=== PATIENT | female | born 1925 | race Caucasian/White ===

== ENCOUNTER → 2016-08-23 | Outpatient (CLI) | payer MEDICARE, BC ==
[~2016-08-23] MED LIST: ASPI-781 PO; CEPH-443 PO; THY15 PO
--- NOTE | 2016-08-24 20:23 | HKNOTE ---
DATE OF SERVICE: 08/23/2016 MAIN COMPLAINT: The patient comes in for checkup on her left knee. DICTATION ENDS HERE Dictated By: REY GRAF/CARLOS Conf#: [id number] DID#: [id number]
== END | disposition home or self-care (01) ==
LOC: HKI 14:50
DX: Z47.1 Aftercare following joint replacement surgery (principal); Z96.651 Presence of right artificial knee joint
CPT/HCPCS: G0463

== ENCOUNTER → 2016-10-13 | Outpatient (CLI) | payer MEDICARE, BC ==
--- NOTE | 2016-10-13 11:19 | RADRPT ---
PROCEDURE: XR right knee. CLINICAL INDICATION: Knee pain. TECHNIQUE: AP weightbearing, lateral weightbearing and sunrise views are available for review. 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 There is no evidence of loosening of the prosthesis. There is no evidence of hardware failure. There is diffuse osteopenia. No acute fracture or dislocat ion is seen.No osseous lesions are identified. The soft tissues are unremarkable . there are arteri al vascular calcifications. There is a small suprapatellar joint effusion IMPRESSION: Unremarkable constrained total knee replacement. Diffuse osteopenia Small suprapatellar joint effusion RPTAT: HGDB .Dion Orourke MD, MD Date Time Electronically viewed and signed by .Dion Orourke MD, on 10/13/2016 11:18 .B/
--- NOTE | 2016-10-13 19:18 | HKNOTE ---
DATE OF SERVICE: 10/13/2016 MAIN COMPLAINT: Pain in the right knee. HISTORY OF MAIN COMPLAINT: The patient is an 89-year-old female who underwent a right total knee re placement on 07/16/2015 (more than a year ago), the knee was "perfect," who underwent revision of a tibial component more than a year ago for loosening. The knee was "perfect" after that until she to ok a fall on 08/18/2016. (As a result of a TIA). She did not have a stroke. She landed directly o n the right knee. Since then, she has had pain over a specific point of the knee. Sometimes she go es for 4 or 5 days without the pain. The pain occurs randomly. Pain is not aggravated by walking, weightbearing or stair climbing, but it seems to be aggravated by local pressure. PHYSICAL EXAMINATION: GENERAL: A remarkably youthful 89-year-old female. VITAL SIGNS: Blood pressure 125/60, temperature 98.0. Examination of the right knee, a full range of motion without pain. No external sign of infection o r inflammation. Patient is able to localize a point of tenderness near the medial side of the wound. This area was palpated and I believe I can feel a cutaneous nerve under the skin which seems to cause her pain and pressure. IMAGING: Plain x-rays of the right knee show all components to be well attached to the bone, not th e slightest suggestion of loosening or any other problem. DIAGNOSES: 1. Status post right total knee replacement. 2. 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 3. A tender subcutaneous neuroma. MANAGEMENT: Under sterile conditions, the neuroma area was injected with 2 mL of lidocaine. This i mmediately took all the pain away from her knee. There is no longer any tender area. A 0.5 mL of K enalog was then injected into the area. She was advised that this may "cure" the condition, or if does not, we may have to do a local explor ation and excise the neuroma. Dictated By: REY GRAF/CARLOS Conf#: [id number] DID#: [id number]
== END | disposition home or self-care (01) ==
LOC: HKI 10:36
DX: D36.13 Benign neoplasm of peripheral nerves and autonomic nervous system of lower limb, including hip (principal); M25.561 Pain in right knee; Z96.651 Presence of right artificial knee joint; Z91.81 History of falling
CPT/HCPCS: 20610; 73562; G0463

== ENCOUNTER → 2016-11-03 | Outpatient (CLI) | payer MEDICARE, BC ==
--- NOTE | 2016-11-04 02:49 | HKNOTE ---
DATE OF SERVICE: 11/03/2016 HISTORY OF PRESENT ILLNESS: The patient continues to complain of pain in her right knee. Pain is o angy the lateral aspect of the knee and has now changed its character in that it radiates from the kn ee to her ankle. The cortisone injection I put into the area where I thought there might be a neuro ma at the last visit did not help at all. The patient's pain also radiates up the lateral aspect of the right thigh to the buttock. She does not have any back pain nor she have any history of back p roblems. Note that she had a revision for a loose tibial component of right total knee replacement performed by me on 07/16/2015. Her knee was fine without pain until she took a fall in August. She only developed this pain after the fall. PHYSICAL EXAMINATION: The right knee has a full range of motion without pain, external sign of infe ction, or inflammation. No tender points could be localized anywhere around her knee today. NEUROLOGIC: Motor examination reveals no muscle deficit in the lower extremities. Deep tendon refl exes in the lower extremities: Right knee jerk plus, left knee jerk plus, right ankle jerk plus, le ft ankle jerk plus. Straight leg raising is negative bilaterally at 80 degrees. Lasegue and IDALMIS tests are negative. MANAGEMENT: The patient is advised that this pain has nothing whatsoever to do with her knee. She almost certainly has radiation of pain from her lower back. She is being referred to Dr. Jose Daniel wilder for a spine consultation and evaluation and probably an MRI scan of the lumbar spine. She will be seen by me again only for conditions related to the right knee. Dictated By: REY GRAF/CARLOS Conf#: [id number] DID#: [id number]
== END | disposition home or self-care (01) ==
LOC: HKI 15:02
DX: M25.561 Pain in right knee (principal); Z96.651 Presence of right artificial knee joint; Z91.81 History of falling
CPT/HCPCS: G0463

== ENCOUNTER 2016-11-19 10:22 | Emergency (ER) | payer MEDICARE, BC ==
[~2016-11-19] VITALS: Ht 160 cm; Wt 64.0 kg
[2016-11-19 10:33] VITALS: Ht 160 cm; Wt 64.0 kg
[2016-11-19 10:53] VITALS: BP 142/78; PULSE 115; RESP 20
--- NOTE | 2016-11-19 11:42 | RADRPT ---
PROCEDURE: CT Brain without contrast. CLINICAL INDICATION: Head and face injury status post fall. TECHNIQUE: A CT of the brain was performed on a multidetector CT scanner utilizing axial sections from the skull base through the vertex without contrast. Images were reviewed on a high-resolution [employer] workstation. Exam CTDI = 45.01 mGy and the DLP = 720.23 mGy-cm. One or more of the following dose reduction techniques were used: Automated exposure control Adjustment of the mA and/or kV according to patient size. Use of iterative reconstruction technique. COMPARISON: Head CT 11/08/2015 FINDINGS: Mild diffuse cerebral and cerebellar atrophy is present. There is proportionate dilatation of the v entricular system and sulci in a symmetric fashion. There is prominence of the extraaxial spaces sec ondary to atrophy. There is no evidence of intracranial hemorrhage, mass effect or midline shift. N o abnormal intra-axial or extra-axial fluid collections are seen. The density of the brain is jyoti l and the rubin/white matter differentiation is well preserved. Mild to moderate patchy diffuse deep white matter microangiopathic ischemic change is seen. The osseous structures are unremarkable. Paranasal sinuses are clear. Vascular calcifications are identified. IMPRESSION: 1. No intracranial hemorrhage, mass effect or midline shift. 2. Mild generalized atrophy. Mild to moderate microangiopathic ischemic change. 3. Intracranial atherosclerosis. RPTAT: EE .Ines Cabrera MD, MD Date Time Electronically viewed and signed by .Ines Cabrera MD, on 11/19/2016 11:42 .O/
--- NOTE | 2016-11-19 11:46 | RADRPT ---
PROCEDURE: CT maxillofacial bones. CLINICAL INDICATION: Pain status post facial trauma TECHNIQUE: Multiphase CT scan of the face was performed in the axial plane. Coronal and sagittal re-formations were performed. The CTDI measures 29.39 mGy. The calculated radiation dose measures 5 11.46 mGy cm. One or more of the following dose reduction techniques were used: Automated exposure control. Adjustment of the mA and/or kV according to patient size. Use of iterative reconstruction technique. COMPARISON: None FINDINGS: There is a nondisplaced nasal bone fracture . The mandible is identified demonstrating no evidence o f fracture or bony dysplasia. There is no evidence of adjacent soft tissue swelling. The mid face a nd bony orbits demonstrate no evidence of acute fracture. Evaluation of the orbits demonstrates the globes to be normal in their size, shape, and attenuation bilaterally. No definite intra or extrac onal soft tissue masses are seen. The optic nerve and nerve sheath complexes bilaterally appear unr emarkable. There is rightward nasal septal deviation with a prominent osseous spur. The paranasal sinuses are clear. There is thinning of bilateral lenses suggesting prior contracts surgery. IMPRESSION: 1. Nondisplaced nasal bone fracture. RPTAT: EE .Ines Cabrera MD, MD Date Time Electronically viewed and signed by .Ines Cabrera MD, MD on 11/19/2016 11:46 .O/
[2016-11-19] MEDS ORDERED: IBUP400T22 PO (11:52)
--- NOTE | 2016-11-19 15:04 | ERD ---
ER Documentation Chief Complaint Date/Time DATE: 11/19/16 TIME: 14:58 Chief Complaint HAD A MECHANICAL FALL AND INJURED FACE AND NOSE HPI 89-year-old woman with bruising to the nasal bridge and bilateral orbits after mechanical trip and fall last night while in the kitchen. She woke up today and after seeing her face came here for evaluation. She denies paresis or paresthesias, no blurry vision, no chest pain or shortness of breath, no headache or complaints of paresis. Patient denies anticoagulant use. ROS All systems reviewed and are negative except as per history of present illness. Medications Home Meds Active Scripts Ibuprofen* (Motrin*) 400 Mg Tab, 400 MG PO Q8 for PAIN AND/OR INFLAMMATION, #30 TAB Prov:ADRI ALLEN MD 11/19/16 Cephalexin* (Keflex*) 500 Mg Capsule, 500 MG PO QID for 5 Days, CAP Prov:ADRI ALLEN MD 11/08/15 Aspirin* (Ecotrin*) 325 Mg Tabec, 325 MG PO BID for 45 Days Prov:KIERSTEN CARCAMO 07/17/15 Reported Medications Thyroid ([place] Thyroid) 15 Mg Tablet, 25 MCG PO DAILY, TAB ON TU,TH. 05/08/14 Thyroid ([place] Thyroid) 15 Mg Tablet, 50 MCG PO DAILY, TAB TAKES 50 MCG ON MON,WED,FRI,SAT 05/08/14 Allergies Allergies: Coded Allergies: lactose (Verified Allergy, Intermediate, 11/08/15) Penicillins (Verified Allergy, Unknown, 11/08/15) calcitonin (Verified Allergy, Unknown, 11/08/15) ciprofloxacin (Verified Allergy, Unknown, 11/08/15) erythromycin base (Verified Allergy, Unknown, 07/16/15) PMhx/Soc Hypertension, thyroid problems, coronary artery disease History of Surgery: Yes (R TKR 2013, back sx, thyroid sx) Anesthesia Reaction: No Hx Neurological Disorder: Yes (TIA on 10/17) Hx Respiratory Disorders: No Hx Cardiac Disorders: No Hx Psychiatric Problems: No Hx Miscellaneous Medical Probl: Yes (thyroid) Hx Alcohol Use: No Hx Substance Use: No Hx Tobacco Use: No Smoking Status: Never smoker FmHx Family History: No diabetes Physical Exam Vitals Vital Signs Date Time Temp Pulse Resp B/P Pulse Ox O2 Delivery O2 Flow Rate FiO2 11/19/16 10:53 115 20 142/78 95 Room Air 11/19/16 10:33 98.0 115 18 155/67 93 Physical Exam GENERAL: Well-developed, well-nourished, well-hydrated, in no apparent distress , looks nontoxic in appearance HEENT: Moist mucous membranes, soft tissue contusion ecchymosis to the bridge of the nose and bilateral inferior orbits, no skin laceration or breakdown, no active bleeding. Cervical spine is without tenderness or step-off deformity NEURO: Alert and oriented 3, cranial nerves II through XII intact bilaterally, pupils equal round reactive to light, no focal deficits or facial asymmetry, sensation intact distally Strength 5/5 in upper and lower extremities bilaterally CARDIAC: Regular rate and rhythm, no murmurs rubs or gallops LUNGS: Clear bilaterally no wheezing crackles or stridor ABDOMEN: Soft nontender, no guarding, no rigidity, no rebound, no psoas sign no obturator sign. Normoactive bowel sounds SKIN: Warm and dry to touch, no abrasions, contusions, or hematomas, no lacerations, no ecchymosis, no target lesions, and without ulcers EXTREMITIES: No clubbing cyanosis or edema, calves are bilaterally symmetrical, no Homans sign, no popliteal cord sign. Distal pulses equal and bilateral PSYCH: Normal affect without agitation or irritability Procedures/MDM CT scan of the brain was negative for acute bleed mass or shift. Maxillofacial CT scan revealed nondisplaced nasal fracture, no other fracture or dislocations noted. Please refer to radiologist dictation for full report. Patient feels much better at this time, and vital signs are normal, symptoms have improved. I did give strict instructions to return to the ED if symptoms continue or worsen, patient will otherwise follow-up with primary care physician. Patient understood instructions and agreed to plan. Disclaimer: Inadvertent spelling or grammatical errors are likely due to EHR/ dictation software use and do not reflect on the overall quality of patient care. Departure Diagnosis: Primary Impression: Nasal fracture Encounter type: initial encounter Fracture type: closed Qualified Code: S02.2XXA - Closed fracture of nasal bone, initial encounter Additional Impression: Facial contusion Encounter type: initial encounter Qualified Code: S00.83XA - Facial contusion, initial encounter Condition: Good Patient Instructions: Facial Contusion, No Wakeup ADRI ALLEN MD Nov 19, 2016 15:04
== END 2016-11-19 12:08 | disposition home or self-care (01) ==
LOC: E/R 10:22
DX: S02.2XXA Fracture of nasal bones, initial encounter for closed fracture (principal); I10 Essential (primary) hypertension; I25.10 Atherosclerotic heart disease of native coronary artery without angina pectoris; R40.2142 Coma scale, eyes open, spontaneous, at arrival to emergency department; R40.2252 Coma scale, best verbal response, oriented, at arrival to emergency department; R40.2362 Coma scale, best motor response, obeys commands, at arrival to emergency department; W01.0XXA Fall on same level from slipping, tripping and stumbling without subsequent striking against object, initial encounter; Y92.000 Kitchen of unspecified non-institutional (private) residence as the place of occurrence of the external cause; Z79.82 Long term (current) use of aspirin
CPT/HCPCS: 70450; 70486

== ENCOUNTER → 2017-02-02 | Outpatient (CLI) | payer MEDICARE, BC ==
[~2017-02-02] MED LIST changes: +IBUP400T22 PO
--- NOTE | 2017-02-02 15:44 | RADRPT ---
PROCEDURE: Right knee x-ray CLINICAL INDICATION: PAIN TECHNIQUE: AP, lateral, and sunrise views of the knee were obtained. COMPARISON: Plain radiographs of the right knee from 10/13/2016 FINDINGS: No acute fracture or dislocation is seen. There is decreased osseous mineralization. A total right knee prosthesis in near anatomic alignment is again noted without evidence of hardware loosening. There is no joint effusion. There is no significant soft tissue swelling. IMPRESSION: Redemonstration of a total right knee prosthesis in near anatomic alignment. Decreased osseous mineralization. RPTAT: EE Physician Akil Date Time Electronically viewed and signed by Physician Akil on 02/02/2017 15:43 RA/
--- NOTE | 2017-02-02 22:38 | HKNOTE ---
DATE OF SERVICE: 02/02/2017 When this patient was last seen she was complaining of a point of tenderness in her knee. I thought I could feel a neuroma under the skin. I injected the area around the neuroma with local anesthetic and cortisone. She now complains that she still has pain in that area and that the skin has become discolored in that area. PHYSICAL EXAMINATION: On physical examination, she has atrophy of the subcutaneous tissues surrounding the area where the neuroma was found. There is still marked tenderness over the neuroma which I can quite easily feel. MANAGEMENT: Patient would like us to remove the neuroma. This will be done under local anesthetic at [facility]. The procedure was discussed with her. The most important thing is that I have warned her that she may not be relieved of her symptoms. It can be quite difficult to track down a small neuroma. Other than that, she is very pleased with the results of her knee replacement surgery. Dictated By: Deejay Byers MD /oz/fercho /Document#: [id number]
== END | disposition home or self-care (01) ==
LOC: HKI 13:15
DX: M25.561 Pain in right knee (principal)
CPT/HCPCS: 73562; G0463

== ENCOUNTER 2017-02-14 21:45 | Emergency (ER) | payer BC, MEDICARE ==
[~2017-02-14] VITALS: Ht 157.5 cm; Wt 65.0 kg
[2017-02-14 23:09] VITALS: Ht 157.5 cm; Wt 65.0 kg
== END 2017-02-15 01:35 | disposition left against medical advice (07) ==
LOC: E/R 21:45
DX: Z53.21 Procedure and treatment not carried out due to patient leaving prior to being seen by health care provider (principal)

== ENCOUNTER → 2017-04-06 | Outpatient (CLI) | payer MEDICARE, BC ==
--- NOTE | 2017-04-06 14:53 | HKNOTE ---
DATE OF SERVICE: 04/06/2017 Patient comes in to report that her right knee is now totally free of pain. On a specific day she f elt a "sudden click." Since then she has had no pain. She gets occasional "discomfort" "which I ca n live with it." Examination of the knee today is completely benign. Her temperature is 99, but on repeated it was n ormal. Knee range of motion 0-120 degrees. No tenderness points such as the neuroma as noted befor e could be found. MANAGEMENT: The patient was congratulated that she needs no further treatment. She will be seen ag ain as necessary. Dictated By: REY GRAF/CARLOS Conf#: [id number] DID#: [id number]
== END | disposition home or self-care (01) ==
LOC: HKI 09:46
DX: M25.561 Pain in right knee (principal)
CPT/HCPCS: G0463